=== PATIENT | female | born 1945 | race Caucasian/White ===

== ENCOUNTER 2024-02-17 12:50 | Outpatient (AMB) | payer BC, SELFPAY ==
--- NOTE | 2024-02-17 12:52 | MHC.OFFVIS ---
Vital Signs 02/17/24 13:14 Height 5 ft 1 in Weight 150 lb BMI 28.3 BP 118/72 Blood Pressure Location Rt brachial Position Sitting Respiration 16 Pulse 68 Pulse Source Pulse Oximeter Pulse Oximetry (%) 98 Oxygen Delivery Method Room Air Intake Visit Reasons: ENP: Numbness/Tingling - Confirmed Intake Note: Pt presents for new pt evaluation for numbness and tingling of upper and lower extremities. Pt reports this started about 3- years ago on 3 toes of her left foot. This has since gradually worsened. 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 Allergies amoxicillin Allergy (Mild, Verified 02/17/24 12:59) Unknown anastrozole Allergy (Mild, Verified 02/17/24 12:59) Unknown aspirin [From Percodan] Allergy (Mild, Verified 02/17/24 12:59) Unknown atorvastatin [From Lipitor] Allergy (Mild, Verified 02/17/24 12:59) Unknown azithromycin Allergy (Mild, Verified 02/17/24 12:59) Unknown celecoxib [From Celebrex] Allergy (Mild, Verified 02/17/24 12:59) Unknown ciprofloxacin [From Cipro] Allergy (Mild, Verified 02/17/24 12:59) Unknown codeine Allergy (Mild, Verified 02/17/24 12:59) Unknown erythromycin base Allergy (Mild, Verified 02/17/24 12:59) Unknown methylprednisolone [From Medrol] Allergy (Mild, Verified 02/17/24 12:59) Unknown morphine Allergy (Mild, Verified 02/17/24 12:59) Unknown oxycodone [From Percodan] Allergy (Mild, Verified 02/17/24 12:59) Unknown Medication List - Last Reconciled 02/17/24 by Sheri Huetra MD acetaminophen 500 mg PO Q6H PRN biotin mcg PO calcium carbonate 260 mg PO DAILY folic acid 0.8 mg PO DAILY losartan 100 mg PO DAILY mecobalamin (vitamin B12) 1,000 mcg PO DAILY methotrexate sodium 2.5 mg PO QWEEK metoprolol succinate ER 25 mg PO DAILY pantoprazole 40 mg PO DAILY pravastatin 40 mg PO DAILY HPI Comments Details: 78y/o female comes for evaluation of numbness and tingling in bilateral hands and feet. It started 4 years ago- it was only in her toes at that time and it has progressed in the pats 1 year. It is constant numbness with intermittent worsening. No neck pain SHs has back pain and sciatica. she is not sure of triggers that worsen or any relieving factors.No weakness. SHe uses a cane to walk .No falls. she has urgency . she also has carpal tunnel and trigger finger on the left she wears a wrist splint at night [facility] Medical History (Updated 02/17/24 @ 13:32 by Sheri Huerta MD) Numbness and tingling of both upper extremities Numbness and tingling of both lower extremities Anxiety Sciatica Essential hypertension BPPV (benign paroxysmal positional vertigo) Branch retinal artery occlusion, right eye Osteoarthritis Primary osteoarthritis involving multiple joints Seropositive rheumatoid arthritis Colon polyp CTS (carpal tunnel syndrome) Globus sensation H. pylori infection Gastritis PVC (premature ventricular contraction) Obese Hyperlipemia Surgical History H/O knee surgery H/O arthroplasty Social History Alcohol intake: never Patient Tobacco Use Status: Never used Tobacco Use of substances other than those prescribed or required for medical reasons: No Physical Exam Vital Signs: Last Vital Signs Pulse 68 02/17/24 13:14 Resp 16 02/17/24 13:14 BP 118/72 02/17/24 13:14 Pulse Ox 98 02/17/24 13:14 Oxygen Delivery Method Room Air 02/17/24 13:14 BMI result Body Mass Index 28.3 Const General: cooperative, comfortable and no acute distress Nutritional Appearance: average body habitus Orientation/consciousness: patient oriented x3 Eyes Pupils: Equal, round and reactive pupils present Neuro Other: catherine hammer toes bunions General: patient oriented x3, tone normal, moves all extremities and no focal motor deficits Cranial nerves: Yes Facial sensation intact/muscles of mastication intact, Yes Equal, round and reactive pupils present, Yes Bilaterally intact EOM present, Yes Nystagmus not present, Yes Normal facial strength present, Yes Midline tongue present, Yes Symmetric palate elevation present and Yes Ability to bilaterally elevate shoulders present Cognition (Neuro): normal cognition Gait exam (Neuro): Antalgic gait present Motor exam (neuro): 5/5 motor strength present throughout and Normal motor muscle tone present throughout Deep tendon reflexes (DTR's): Right triceps reflex intensity grade: 1+, Left triceps reflex intensity grade: 1+, Rt Biceps (C5, C6): 1+, Left biceps reflex intensity grade: 1+, Right brachioradialis reflex intensity grade: 1+, Left brachioradialis reflex intensity grade: 1+, Right patellar reflex intensity grade: 1+ and Left patellar reflex intensity grade: 1+ Coordination: [id number] test normal Assessment & Plan Assessment & Plan (1) Numbness and tingling of both lower extremities: Code(s): R20.0 - Anesthesia of skin; R20.2 - Paresthesia of skin Category: Medical (2) Numbness and tingling of both upper extremities: Code(s): R20.0 - Anesthesia of skin; R20.2 - Paresthesia of skin Category: Medical Plan It is likely related to deg disease of the spine. I will evaluate with EMG NCS and f/u Continue using wrist splints for carpal tunnel syndrome F/u Vit B12 def with PCP Orders: Orders NE electromyogram (EMG) Today R20.0 - Anesthesia of skin, R20.2 - Paresthesia of skin NE nerve conduction velocity Today R20.0 - Anesthesia of skin, R20.2 - Paresthesia of skin Coding Level of Care Code New Pt Level 4 (14058) Diagnoses Numbness and tingling of both lower extremities R20.0; R20.2 Numbness and tingling of both upper extremities R20.0; R20.2
[2024-02-17 13:14] VITALS: BP 118/72; PULSE 68; RESP 16; O2SAT 98; BMI 28.3
== END 2024-02-17 13:43 | disposition home or self-care (01) ==
PROVIDERS: PCP Nurse Practitioner Family; Visit Provider Psychiatry & Neurology Neurology
DX: R20.0 Anesthesia of skin (principal); R20.2 Paresthesia of skin
CPT/HCPCS: 99204

== ENCOUNTER → 2024-02-17 12:50 | Outpatient (BNVA) | payer BC, SELFPAY | PROVIDERS: PCP Nurse Practitioner Family; Visit Provider Psychiatry & Neurology Neurology ==

== ENCOUNTER 2024-03-31 13:22 | Outpatient (REF) | payer MEDICARE, SELFPAY ==
--- NOTE | 2024-03-31 13:27 | EMG_ITS ---
Chief complaint: 78-year-old with hand and feet numbness. She says the numbness is worse in constant on left hand. And it bothers her more on the left foot. Nondiabetic. Reports history of cervical spondylosis and lumbar spinal stenosis. History of right CTR. Reason for referral: Evaluate for neuropathy Referred by: Dr. Huerta Procedure done: Left upper extremity, bilateral lower extremity NCS/EMG Precautions and/or limitations: None The limb temperature was monitored continuously and remained between 32-36 degrees C during the performance of the NCS. Nerve Conduction Studies Anti Sensory Summary Table ?Stim Site NR Onset (ms) Norm Onset (ms) Peak (ms) Norm Peak (ms) O-P Amp (?V) Norm O-P Amp Site1 Site2 Delta-0 (ms) Dist (cm) Steven (m/s) Norm Steven (m/s) Left Median Anti Sensory (2nd Digit) Wrist ? 4.6 5.7 <3.6 17.5 >10 Wrist 2nd Digit 4.6 14.0 30 Left Sural Anti Sensory (Lat Mall) Calf ? 3.8 4.0 <4.0 9.5 >5.0 Calf Lat Mall 3.8 14.0 37 Calf ? 3.7 4.0 11.6 Right Sural Anti Sensory (Lat Mall) Calf ? 3.7 4.0 <4.0 16.5 >5.0 Calf Lat Mall 3.7 14.0 38 Left Ulnar Anti Sensory (5th Digit) Wrist ? 2.9 3.7 <3.7 27.1 >15.0 Wrist 5th Digit 2.9 14.0 48 Motor Summary Table ?Stim Site NR Onset (ms) Norm Onset (ms) O-P Amp (mV) Norm O-P Amp iAmp (mV) Amp (1st) (%) Site1 Site2 Delta-0 (ms) Dist (cm) Steven (m/s) Norm Steven (m/s) Left Median Motor (Abd Poll Brev) Wrist ? 5.2 <3.9 2.9 >4.5 3.4 100.0 Elbow Wrist 5.0 22.0 44 >45 Elbow ? 10.2 2.4 2.9 82.8 Right Peroneal Motor (Ext Dig Brev) Ankle ? 7.8 <4.0 0.8 >2.5 0.8 100.0 Ankle Ext Dig Brev 7.8 0.0 B Fib ? 15.2 0.9 0.8 112.5 B Fib Ankle 7.4 28.0 38 >40 Poplt ? 16.4 0.9 0.7 112.5 Poplt B Fib 1.2 5.0 42 >40 Left Tibial Motor (Abd Steward Brev) Ankle ? 4.6 <5 3.2 >2.5 6.3 100.0 Ankle Abd Steward Brev 4.6 0.0 Knee ? 12.1 2.4 4.7 75.0 Knee Ankle 7.5 35.0 47 >40 Right Tibial Motor (Abd Steward Brev) Ankle ? 4.6 <5 7.2 >2.5 10.8 100.0 Ankle Abd Steward Brev 4.6 0.0 Knee ? 12.6 6.3 9.3 87.5 Knee Ankle 8.0 34.5 43 >40 Left Ulnar Motor (Abd Dig Minimi) Wrist ? 2.6 <3.0 5.8 >5 7.3 100.0 B Elbow Wrist 2.7 17.0 63 >45 B Elbow ? 5.3 5.5 7.0 94.8 A Elbow B Elbow 1.9 10.0 53 >45 A Elbow ? 7.2 5.2 6.6 89.7 EMG ?Side Muscle Nerve Root Ins Act Fibs Psw Amp Dur Poly Recrt Int Pat Comment Left 1stDorInt Ulnar C8-T1 Nml Nml Nml Nml Nml 0 Nml Complete Left FlexCarRad Median C6-7 Nml Nml Nml Nml Nml 0 Nml Complete Left Biceps Musculocut C5-6 Nml Nml Nml Nml Nml 0 Nml Complete Left Triceps Radial C6-7-8 Nml Nml Nml Nml Nml 0 Nml Complete Left Deltoid Axillary C5-6 Nml Nml Nml Nml Nml 0 Nml Complete Right AbdHallucis MedPlantar S1-2 Nml Nml Nml Nml Nml 0 Nml Complete Right AntTibialis Dp Br Peron L4-5 Nml Nml Nml Nml Nml 0 Nml Complete Right PostTibialis Tibial L5, S1 Nml Nml Nml Nml Nml 0 Nml Complete Right MedGastroc Tibial S1-2 Nml Nml Nml Nml Nml 0 Nml Complete Right VastusMed Femoral L2-4 Nml Nml Nml Nml Nml 0 Nml Complete Left AbdHallucis MedPlantar S1-2 Nml Nml Nml Nml Nml 0 Nml Complete Left AntTibialis Dp Br Peron L4-5 Nml Nml Nml Nml Nml 0 Nml Complete Left PostTibialis Tibial L5, S1 Nml Nml Nml Nml Nml 0 Nml Complete Left MedGastroc Tibial S1-2 Nml Nml Nml Nml Nml 0 Nml Complete Left VastusMed Femoral L2-4 Nml Nml Nml Nml Nml 0 Nml Complete FINDINGS: Left median motor nerve showed prolonged distal latency, small amplitude and slow conduction velocity. Left median sensory nerve showed prolonged peak latencies. Very small amplitudes on right peroneal nerve but EDB is very flat. Also note advanced age. Note that bilateral tibial and sural nerves within normal. All other nerves tested were within normal. Concentric needle EMG was performed in selected muscles of the left upper and bilateral lower extremities. Study did not reveal signs of electric abnormalities as shown in the table above. IMPRESSION: 1. This is an abnormal study. 2. 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 3. There is no electrodiagnostic evidence for left ulnar neuropathy, brachial plexopathy, cervical radiculopathy. or any tibial neuropathy. lumbosacral plexopathy, lumbar radiculopathy, or peripheral neuropathy. CLINICAL COMMENT: Would attribute findings on right peroneal nerve on flat EDB muscle, which is not uncommon. Thank you for your kind referral. Lynn Valles MD, KELLY Board Certified, [place] [employer] and Rehabilitation (ABPMR) Board Certified, [place] Board of Electrodiagnostic Medicine (ABEM) CODIN [phone] MTDD
== END 2024-03-31 13:23 | disposition home or self-care (01) ==
LOC: HO.NEURO 13:22
PROVIDERS: PCP Internal Medicine; Visit Provider Psychiatry & Neurology Neurology
DX: R20.0 Anesthesia of skin (principal); R20.2 Paresthesia of skin
CPT/HCPCS: 95886; 95911

== ENCOUNTER → 2024-03-31 13:27 | Outpatient (BNV) | payer MEDICARE, SELFPAY | PROVIDERS: PCP Internal Medicine; Visit Provider Physical Medicine & Rehabilitation | DX: G56.03 Carpal tunnel syndrome, bilateral upper limbs (principal); R20.0 Anesthesia of skin | CPT/HCPCS: 95886; 95911 ==